=== PATIENT | male | born 1960 | race Caucasian/White ===

== ENCOUNTER 2020-11-22 23:27 | Inpatient (IN) | payer BC, OTHER ==
[~2020-11-22] VITALS: Ht 198.1 cm; Wt 113.4 kg
[2020-11-23 00:32] LABS: HEMOGLOBIN 15.2 gm/dl (14.0-17.5); RED BLOOD COUNT 4.87 M/UL (4.20-5.50); WHITE BLOOD COUNT 7.2 K/UL (4.5-11.0)
[2020-11-23 01:09] LABS: BUN/CREATININE RATIO 27 (0-10)
[2020-11-23] MEDS ORDERED: PROVENTIL HFA6.7 GM INH (10:32)
[2020-11-23] MEDS ORDERED: CRESTOR10 MG PO (10:32)
[2020-11-23] MEDS ORDERED: MOBIC15 MG PO (10:32)
[2020-11-23] MEDS ORDERED: ASPIRIN EC81 MG PO (10:33)
[2020-11-24 03:35] LABS: HEMOGLOBIN 14.3 gm/dl (14.0-17.5); RED BLOOD COUNT 4.65 M/UL (4.20-5.50); WHITE BLOOD COUNT 7.8 K/UL (4.5-11.0)
[2020-11-24 04:17] LABS: BUN/CREATININE RATIO 27 (0-10)
[2020-11-26 05:19] LABS: HEMOGLOBIN 14.7 gm/dl (14.0-17.5); RED BLOOD COUNT 4.8 M/UL (4.20-5.50); WHITE BLOOD COUNT 6.9 K/UL (4.5-11.0)
[2020-11-26 05:39] LABS: BUN/CREATININE RATIO 36 (0-10)
[2020-11-26] MEDS ORDERED: DEXAMETHASONE1 MG PO (11:52)
== END 2020-11-26 13:04 | disposition home or self-care (01) | DRG 177 ==
LOC: ER1 23:27 → CDU 11-23 01:31 → M/S 11-23 01:31
PROVIDERS: Internal Medicine; Physician Assistant; ADMIT Internal Medicine
PROC: 8E0ZXY6 Isolation (ICD-10-PCS; principal; 2020-11-23)
PROC: XW033E5 Introduction of Remdesivir Anti-infective into Peripheral Vein, Percutaneous Approach, New Technology Group 5 (ICD-10-PCS; 2020-11-23)
PROC: 3E0333Z Introduction of Anti-inflammatory into Peripheral Vein, Percutaneous Approach (ICD-10-PCS; 2020-11-23)
DX: U07.1 COVID-19 (principal); J12.82 Pneumonia due to coronavirus disease 2019; J96.01 Acute respiratory failure with hypoxia; I25.10 Atherosclerotic heart disease of native coronary artery without angina pectoris; E78.5 Hyperlipidemia, unspecified; M19.90 Unspecified osteoarthritis, unspecified site; Z90.49 Acquired absence of other specified parts of digestive tract
CPT/HCPCS: 36415; 36600; 71045; 80053; 82550; 82553; 82728; 82803; 83615; 83874; 83880; 84484; 85025; 85610; 85730; 86140; 86900; 86901; 86927; 93005; 94640; 94664; 94760; 96374; 99285; J1100; J1650; J7030